=== PATIENT | female | born 1990 | race American Indian/Alaskan Native ===

== ENCOUNTER 2020-12-16 19:57 | Emergency (ER) | payer OTHER ==
[2020-12-16 20:36] VITALS: BP 123/80
[2020-12-16] MEDS ORDERED: ACETAMINOPHEN 500 MG TAB PO ONE (20:44)
[2020-12-16] MEDS ORDERED: IBUPROFEN 600 MG TAB PO ONE (20:44)
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
== END 2020-12-16 23:26 | disposition home or self-care (01) ==
LOC: ED 19:57
DX: S16.1XXA Strain of muscle, fascia and tendon at neck level, initial encounter (principal); M62.830 Muscle spasm of back; E11.9 Type 2 diabetes mellitus without complications; F20.9 Schizophrenia, unspecified; V49.49XA Driver injured in collision with other motor vehicles in traffic accident, initial encounter; Y93.89 Activity, other specified; Y92.488 Other paved roadways as the place of occurrence of the external cause; Y99.8 Other external cause status
CPT/HCPCS: 70450; 72125; 99283